=== PATIENT | female | born 1940 | race Caucasian/White ===

== ENCOUNTER 2016-04-07 12:51 | Inpatient (IN) | payer OTHER, MEDICARE ==
[2016-04-07] VITALS (11 sets, daily range): BP systolic 114–220; BP diastolic 70–95; PULSE 79–102; RESP 16–18; TEMP 97.2; O2SAT 91–98
[~2016-04-07] VITALS: Ht 162.6 cm; Wt 94.9 kg
[~2016-04-07 12:51] MED LIST: AMLO5TAB96 PO; ASPI81CH5 CHEW; LEVO100T4 PO; LORTA5 PO; LOVA1TAB47 PO; OMEG1CAP53 PO; VITA400C28 PO; VITA400C70 PO
[2016-04-07] MEDS ORDERED: SODIUM CHLORIDE 0.9% FLUSH 5 ML FLUSH IVF PRN ×2 (13:15→14:45)
--- NOTE | 2016-04-07 13:18 | PD ---
HPI Chief Complaint: Neuro Symptoms/ Deficits Time Seen by Provider: 12:53 Travel History International Travel<30 days: No Contact w/Intl Traveler<30days: No Traveled to known affect area: No History of Present Illness HPI 75-year-old female came to the emergency room with history of left-sided weakness. Her is here with her. Patient seems a little confused but knows where she is and the date today. She answers questions after asking her for couple times. Patient says she went to bed at 1:30 AM when she noticed that her left leg was weak. This morning when she woke up the leg was still weak and her left upper extremity was weak as well. Patient had a blood pressure of 220 systolic in the ER. Patient was complaining of headache on the right side and took some Advil for it. Patient takes 1 baby aspirin every night and took one last night as well. No previous history of stroke. PFSH Past Medical History Narrative Medical List of her past medical history is reviewed from the nursing note. Hx Anticoagulant Therapy: Yes (aspirin 81mg ) Depression: Yes Cardiovascular Problems: Yes (htn) High Cholesterol: Yes Hypertension: Yes Respiratory: Yes (copd) Thyroid Disease: Yes ?: Not Past Surgical History Hysterectomy: Yes Other Surgery: Yes (HIATAL HERNIA) Social History Alcohol Use: Yes (OCCASIONAL) Tobacco Use: No Substance Use: No Allergies-Medications (Allergen,Severity, Reaction): Coded Allergies: No Known Allergies (Verified , 04/07/16) Comments No known drug allergies. Reported Meds & Prescriptions Reported Meds & Active Scripts Active Reported Amlodipine (Amlodipine Besylate) 5 Mg Tab 5 Mg PO DAILY Aspirin Children's (Aspirin) 81 Mg Chew 81 Mg CHEW HS Vitamin D-3 (Cholecalciferol) 1,000 Unit Tab 1,000 Units PO DAILY Levothyroxine (Levothyroxine Sodium) 100 Mcg Tab 100 Mcg PO DAILY Lovastatin 20 Mg Tab 20 Mg PO HS Krill Oil 500 mg (Krill Oil) 1 Cap Cap 500 Mg PO DAILY Alph-E (Vitamin E) 400 Unit Cap 400 Units PO DAILY Narrative Medication List of her home medications reviewed from the nursing note. Review of Systems Except as stated in HPI: all other systems reviewed are Neg Physical Exam Narrative GENERAL: Awake, looks slightly confused, obese, Elderly, moderate distress SKIN: Warm and dry. HEAD: Atraumatic. Normocephalic. EYES: Pupils equal and round. No scleral icterus. No injection or drainage. ENT: No nasal bleeding or discharge. Mucous membranes pink and moist. NECK: Trachea midline. No JVD. CARDIOVASCULAR: Regular rate and rhythm. No murmur appreciated. RESPIRATORY: No accessory muscle use. Clear to auscultation. Breath sounds equal bilaterally. GASTROINTESTINAL: Abdomen soft, non-tender, nondistended. Hepatic and splenic margins not palpable. MUSCULOSKELETAL: No obvious deformities. No clubbing. No cyanosis. No edema. NEUROLOGICAL: GCS of 14 slightly confused. Left upper and left lower extremity weakness. Patient is able to move the extremity but strength is 3 out of 5. Sensation is diminished on the left lower extremity. Normal speech. The entire NIH stroke score was difficult to be done since patient was not answering questions and following commands appropriately PSYCHIATRIC: Appropriate mood and affect; insight and judgment normal. Data Data Last Documented VS Vital Signs Date Time Temp Pulse Resp B/P Pulse Ox O2 Delivery O2 Flow Rate FiO2 04/07/16 14:01 79 180/77 04/07/16 13:38 18 95 Nasal Cannula 3 Orders Electrocardiogram (04/07/16 13:01) Prothrombin Time / Inr (Pt) (04/07/16 13:01) Act Partial Throm Time (Ptt) (04/07/16 13:01) Complete Blood Count With Diff (04/07/16 13:01) Comprehensive Metabolic Panel (04/07/16 13:01) Creatine Kinase (Cpk) (04/07/16 13:01) Troponin I (04/07/16 13:01) Urinalysis - C+S If Indicated (04/07/16 13:01) Ct Brain W/O Iv Contrast(Rout) (04/07/16 13:01) Chest, Single Ap (04/07/16 13:01) Ecg Monitoring (04/07/16 13:01) Iv Access Insert/Monitor (04/07/16 13:01) Oximetry (04/07/16 13:01) Sodium Chloride 0.9% Flush (Ns Flush) (04/07/16 13:15) Aspirin (Aspirin) (04/07/16 14:00) Consult Neurology (04/07/16 ) Hydralazine Inj (Apresoline Inj) (04/07/16 14:00) Sodium Chlorid 0.9% 500 Ml Inj (Ns 500 M (04/07/16 14:00) (Hub Use Only)Inp Phy Cons/Ref (04/07/16 ) ^ Straight Catheter (04/07/16 14:10) Mri Brain W/O Contrast (04/07/16 ) Mra Brain W/O Contrast (Cow) (04/07/16 ) Nih Stroke Scale - Nihss .On admission and discharge (04/07/16 14:34) Neuro Checks Q2HX12,Q4H (04/07/16 14:34) Ot Request For Service (04/07/16 14:34) Consult Pt Eval & Treat (04/07/16 14:34) Swallow Eval W/ St (04/07/16 14:34) Case Management Consult (04/07/16 ) Nursing Bedside Swallow Assess .ONCE (04/07/16 14:34) Scd Bilateral/Knee High LILIANA.QSHIFT (04/07/16 14:34) Hemoglobin (Hgb) A1c (04/07/16 14:34) Lipid Profile (04/08/16 06:00) Us Carotid Arteries Comp Bilat (04/07/16 ) Echo 2d Comp W/Dopp(Routine) (04/07/16 ) Resp Oxygen Heraclio C Titrat 1-4 L (04/07/16 ) ^ Hold Medication (04/07/16 14:34) Enalaprilat Inj (Vasotec Inj) (04/07/16 14:45) Labetalol Inj (Trandate Inj) (04/07/16 14:45) Aspirin (Aspirin) (04/08/16 09:00) Bedside Glucose LILIANA.AC&HS (04/07/16 14:34) ^ Discontinue Insulin Orders (04/07/16 14:34) Insulin Aspart Supplemtl Scale (Novolog (04/07/16 16:00) Dextrose 50% In Jerilyn (Vial) Inj (D50w (Vi (04/07/16 14:45) Glucagon Inj (Glucagon Inj) (04/07/16 14:45) Consult Rehab Medicine (04/07/16 14:34) Pond Scaler / Telemetry (04/07/16 14:34) Enoxaparin Inj (Lovenox Inj) (04/07/16 15:00) Admit To Inpatient (04/07/16 ) Vital Signs (Adult) Q4H (04/07/16 14:40) Neuro Checks Q4H (04/07/16 14:40) Activity Oob With Assistance (04/07/16 14:40) Pond Scaler / Telemetry .CONTINUOUS (04/07/16 14:40) Diet Heart Healthy (04/07/16 Dinner) Sodium Chloride 0.9% Flush (Ns Flush) (04/07/16 14:45) Sodium Chloride 0.9% Flush (Ns Flush) (04/07/16 21:00) Acetaminophen (Tylenol) (04/07/16 14:45) Ondansetron Inj (Zofran Inj) (04/07/16 14:45) Bisacodyl Supp (Dulcolax Supp) (04/07/16 14:45) Magnesium Hydroxide Liq (Milk Of Magnesi (04/07/16 14:45) Basic Metabolic Panel (Bmp) (04/08/16 06:00) Complete Blood Count With Diff (04/08/16 06:00) Resp Oxygen Heraclio C Titrat 1-4 L (04/07/16 ) Pt Request For Service (04/07/16 14:40) Admit Order (Ed Use Only) (04/07/16 14:39) Ot Request For Service (04/07/16 14:40) St Request For Service (04/07/16 14:40) Scd Bilateral/Knee High LILIAAN.BID (04/07/16 14:40) Naloxone Inj (Narcan Inj) (04/07/16 14:45) Inpatient Certification (04/07/16 ) Labs Laboratory Tests Test 04/07/16 04/07/16 13:20 14:26 White Blood Count 8.1 TH/MM3 Red Blood Count 4.65 MIL/MM3 Hemoglobin 13.8 GM/DL Hematocrit 41.1 % Mean Corpuscular Volume 88.3 FL Mean Corpuscular Hemoglobin 29.6 PG Mean Corpuscular Hemoglobin 33.6 % Concent Red Cell Distribution Width 13.5 % Platelet Count 166 TH/MM3 Mean Platelet Volume 9.6 FL Neutrophils (%) (Auto) 80.5 % Lymphocytes (%) (Auto) 11.9 % Monocytes (%) (Auto) 6.6 % Eosinophils (%) (Auto) 0.5 % Basophils (%) (Auto) 0.5 % Neutrophils # (Auto) 6.5 TH/MM3 Lymphocytes # (Auto) 1.0 TH/MM3 Monocytes # (Auto) 0.5 TH/MM3 Eosinophils # (Auto) 0.0 TH/MM3 Basophils # (Auto) 0.0 TH/MM3 CBC Comment DIFF FINAL Differential Comment Prothrombin Time 10.2 SEC Prothromb Time International 0.9 RATIO Ratio Activated Partial 24.5 SEC Thromboplast Time Sodium Level 139 MEQ/L Potassium Level 4.2 MEQ/L Chloride Level 102 MEQ/L Carbon Dioxide Level 28.2 MEQ/L Anion Gap 9 MEQ/L Blood Urea Nitrogen 18 MG/DL Creatinine 0.92 MG/DL Estimat Glomerular Filtration 59 ML/MIN Rate Random Glucose 126 MG/DL Hemoglobin A1c 5.8 % Calcium Level 8.9 MG/DL Total Bilirubin 0.6 MG/DL Aspartate Amino Transf 13 U/L (AST/SGOT) Alanine Aminotransferase 20 U/L (ALT/SGPT) Alkaline Phosphatase 75 U/L Total Creatine Kinase 66 U/L Troponin I LESS THAN 0.02 NG/ML Total Protein 7.4 GM/DL Albumin 4.1 GM/DL Urine Color LIGHT-YELLOW Urine Turbidity CLEAR Urine pH 7.0 Urine Specific [place] 1.007 Urine Protein TRACE mg/dL Urine Glucose (UA) NEG mg/dL Urine Ketones NEG mg/dL Urine Occult Blood NEG Urine Nitrite NEG Urine Bilirubin NEG Urine Urobilinogen LESS THAN 2.0 MG/DL Urine Leukocyte Esterase NEG Urine RBC LESS THAN 1 /hpf Urine WBC LESS THAN 1 /hpf Urine Squamous Epithelial 1 /hpf Cells Urine Mucus FEW /lpf Microscopic Urinalysis Comment CATH-CULT NOT IND MDM Medical Decision Making Medical Screen Exam Complete: Yes Emergency Medical Condition: Yes Medical Record Reviewed: Yes Interpretation(s) Twelve-lead EKG was reviewed by me. Normal sinus rhythm, left axis deviation, old anterior CT, nonspecific ST-T wave changes, first-degree AV block. Heart rate of 87 bpm. Differential Diagnosis Intracranial bleed, CVA Narrative Course 1:29 PM patient was taken for CT scan of her head emergently. Awaiting for the scan to be done and resulted. Awaiting for the blood test result. Patient will need to be admitted regardless. 2:[address] scan result is within normal limit for any acute bleed. There is some lacunar infarcts. I spoke with the neurologist Dr. Michele who came and assessed the patient. Patient is not a TPA candidate given significantly out of the TPA window. Patient will need to be admitted. Awaiting for the hospitalist to call back. Procedures EKG Prior to Arrival: No Physician Communication Physician Communication Dr. Michele Diagnosis Primary Impression: CVA (cerebral vascular accident) Qualified Code: I63.9 - Cerebrovascular accident (CVA), unspecified mechanism Admitting Information Admitting Physician Requests: Admit Baudilio Pham MD Apr 07, 2016 13:17
[2016-04-07 13:27] LABS: AUTOMATED NEUTROPHIL # 6.5 TH/MM3 (1.8-7.7); BASOPHIL % 0.5 % (0.0-2.0); EOSINOPHIL % 0.5 % (0.0-4.0); HEMATOCRIT 41.1 % (35.0-46.0); HEMO FLAGS DIFF FINAL; LYMPH % 11.9 % (9.0-44.0); MEAN CELL VOLUME 88.3 FL (80.0-100.0); MEAN CORPUSCULAR HEMOGLOBIN 29.6 PG (27.0-34.0); MEAN CORPUSCULAR HGB CONC 33.6 % (32.0-36.0); MONO % 6.6 % (0.0-8.0); NEUT % 80.5 % (16.0-70.0); PLATELET COUNT 166 TH/MM3 (150-450); RED BLOOD COUNT 4.65 MIL/MM3 (4.00-5.30); RED CELL DISTRIBUTION WIDTH 13.5 % (11.6-17.2); WHITE BLOOD COUNT 8.1 TH/MM3 (4.0-11.0)
[2016-04-07 13:41] LABS: APTT (PATIENT) 24.5 SEC (24.3-30.1); INTERNATIONAL NORMALIZED RATIO 0.9 RATIO; PROTHROMBIN TIME - PATIENT 10.2 SEC (9.8-11.6)
[2016-04-07 13:49] LABS: ANION GAP 9 MEQ/L (5-15); AST (GOT) 13 U/L (15-37); BICARBONATE 28.2 MEQ/L (21.0-32.0); BLOOD UREA NITROGEN 18 MG/DL (7-18); CHLORIDE 102 MEQ/L (98-107); GLOMERULAR FILTRATION RATE 59 ML/MIN (>89); POTASSIUM 4.2 MEQ/L (3.5-5.1); SODIUM (NA) 139 MEQ/L (136-145)
--- NOTE | 2016-04-07 13:54 | RADRPT ---
EXAM DATE/TIME: 04/07/2016 13:24 [facility] COMPARISON: CT BRAIN W/O CONTRAST, November 21, 2015, 21:16. INDICATIONS: Left sided weakness starting last night RADIATION DOSE: 39.24 CTDIvol (mGy) MEDICAL HISTORY: Cardiovascular disease. Hypertension. Hernia, hiatal. SURGICAL HISTORY: Hysterectomy. ENCOUNTER: Initial ACUITY: 1 day PAIN SCALE: 0/10 LOCATION: Cranial TECHNIQUE: Multiple contiguous axial images were obtained of the head. Using automated exposure control and adj ustment of the mA and/or kV according to patient size, radiation dose was kept as low as reasonably a chievable to obtain optimal diagnostic quality images. FINDINGS: Stable old lacunar infarcts are again noted within the bilateral basal ganglia. Periventricular and subcortical white matter small vessel ischemic changes are also again noted. Mild cerebral atrophy is noted. Th ere is no acute hemorrhage, midline shift or extraaxial fluid collections. CONCLUSION: 1. No acute infarct, acute hemorrhage, mass effect or extraaxial fluid collections. 2. Stable scattered old lacunar infarcts within the bilateral basal ganglia and periventricular/subc ortical white matter small vessel ischemic changes bilaterally. 3. Stable cerebral atrophy. Rafa Lee MD on April 07, 2016 at 13:41 Board Certified Radiologist. This report was verified electronically.
[2016-04-07 13:56] LABS: ALKALINE PHOSPHATASE 75 U/L (45-117); ALT (GPT) 20 U/L (10-53); TOTAL BILIRUBIN ADULT 0.6 MG/DL (0.2-1.0)
[2016-04-07] MEDS ORDERED: ASPIRIN 325 MG TAB PO ONE (14:00)
[2016-04-07] MEDS ORDERED: hydrALAZINE HCL 20 MG/ML VIAL IV PUSH ONE (14:00)
[2016-04-07] MEDS ORDERED: SODIUM CHLORID 0.9% 500 ML INJ 500 ML IV ONE (14:00)
[2016-04-07 14:08] LABS: CREATINE KINASE 66 U/L (26-192)
--- NOTE | 2016-04-07 14:43 | RADRPT ---
EXAM DATE/TIME: 04/07/2016 14:20 [facility] COMPARISON: No previous studies available for comparison. INDICATIONS : Fall, short of breath, possible CVA MEDICAL HISTORY : None. SURGICAL HISTORY : None. ENCOUNTER: Initial ACUITY: 1 day PAIN SCORE: 0/10 LOCATION: Bilateral chest FINDINGS: The heart is enlarged. There is either consolidative changes or eventration of the rig ht hemidiaphragm. There is no overt congestive failure. Portions of bony skeleton visualized are un remarkable. CONCLUSION: Abnormal chest as described above. A good PA and lateral of film would be of benefit . Roscoe Vazquez MD FACR on April 07, 2016 at 14:36 Board Certified Radiologist. This report was verified electronically.
[2016-04-07] MEDS ORDERED: GLUCAGON 1 MG/ML VIAL IM/SQ PRN (14:45)
[2016-04-07] MEDS ORDERED: NALOXONE HCL 0.4 MG/ML AMP IV PRN (14:45)
[2016-04-07] MEDS ORDERED: ENALAPRILAT 1.25 MG/ML VIAL IV PRN (14:45)
[2016-04-07] MEDS ORDERED: DEXTROSE 50% IN WATER 50 ML VIAL(D50) IV PUSH PRN (14:45)
[2016-04-07] MEDS ORDERED: MAGNESIUM HYDROXIDE SUSP 30 ML CUP PO PRN (14:45)
[2016-04-07] MEDS ORDERED: LABETALOL HCL 100 MG/20 ML VIAL IV PRN (14:45)
[2016-04-07] MEDS ORDERED: ACETAMINOPHEN/HYDROcodone 325 MG/5 MG TAB PO PRN (14:45)
[2016-04-07] MEDS ORDERED: ACETAMINOPHEN 325 MG TAB PO PRN (14:45)
[2016-04-07] MEDS ORDERED: SODIUM CHLORIDE 0.9% FLUSH 5 ML FLUSH FLUSH PRN (14:45)
[2016-04-07] MEDS ORDERED: BISACODYL 10 MG SUPP PR PRN (14:45)
[2016-04-07] MEDS ORDERED: ONDANSETRON HCL 4 MG/2 ML VIAL IVP PRN (14:45)
[2016-04-07 15:00] LABS: BLOOD, URINE NEG (NEG); COMMENT (UR) CATH-CULT NOT IND; CULTURE IF INDICATED CATH CULTURE NOT IND; GLUCOSE,URINE NEG (NEG); KETONE, URINE NEG (NEG); MUCUS URINE FEW /lpf (OCC); NITRITE,URINE NEG (NEG); SQUAMOUS EPITHELIAL CELL URINE 1 /hpf (0-5); URINE COLOR LIGHT-YELLOW (YELLW/STRAW)
--- NOTE | 2016-04-07 15:04 | MB ---
cc: MAC GRIMES M.D. DATE OF CONSULTATION: 04/07/2016 DATE OF : 1940 HISTORY OF PRESENT ILLNESS The patient is a 75-year-old woman that came in with some left-sided weakness, confused, a little slow speaking. Apparently got up at 1:30 in the morning and noticed that she had left leg weakness. Still weak after awakening in the morning as well as noted in the left upper extremity. Apparently did not come in at that time, came in now. So she was out of the window for TPA and not a stroke alert. She had a systolic blood pressure of 220 when she came in and a mild headache. Normally she takes a baby aspirin every night. PAST MEDICAL HISTORY 1. Hypertension. 2. Coronary artery disease. 3. Hyperlipidemia. 4. Hypothyroidism. 5. Osteoporosis. 6. Overactive bladder. PAST SURGICAL HISTORY 1. Hysterectomy. 2. Hiatal hernia. SOCIAL HISTORY . Occasional alcohol. No tobacco or drugs. ALLERGIES None reported. MEDICATIONS Home medicines are: 1. Synthroid. 2. Norvasc. 3. Carvedilol. 4. Fosamax. 5. Baby aspirin. 6. Vitamins. PHYSICAL EXAMINATION VITAL SIGNS: Pulse is 79, respiratory rate 18. Blood pressure came in with 220/95, currently is 180/77. Satting at 95% on three liters nasal cannula. NECK: Supple. No appreciable bruits. HEART: Regular. No murmurs. LUNGS: Clear. NEUROLOGIC: She is awake and alert, a little slow to respond, but not dysarthric, not aphasic. Follows commands. Her pupils are reactive. Face is symmetrical. Tongue is midline. Facial sensation is normal bilaterally. Motor-almonte minimal subtle drift left arm and left leg, but overall 4+ strength in both upper and lower extremities on the left. Sensory is normal throughout. The right side is intact. Toes withdraws bilaterally. DTRs are one to 2+. Xopyoc-[id number] a little slower on the left than on the right but no past pointing, no dysmetria. Gait is withheld. She is at bed rest. Looking at the NIH scale she is alert, she has at best NIH of 2-3. LABORATORY DATA CBC is really unremarkable. Coag panel normal. Chemistries, glucose 126, GFR 59, AST 13, ALT 20, cardiac enzymes normal. IMAGING DATA The CT of the head performed as per protocol that showed no acute infarct, hemorrhage or mass. Old lacunes in both basal ganglia, periventricular subcortical white matter change and some atrophy. This is compared to a scan from 11/21/2015 IMPRESSION Left-sided weakness, likely consistent with an acute infarct. RECOMMENDATIONS The recommendations are to complete a stroke workup. She does not fit the criteria for TPA due to adequate window. Will go ahead and get an MRI of the brain, MRA [place], carotid ultrasound, 2-D echo. Will increase her baby aspirin to full dose aspirin for the interim. PT, OT, speech therapy, rehab consult. Fasting lipid panel. Permissible hypertension. Treat with systolic over 220 or diastolic 110 with either IV Vasotec or labetalol. Frank her out of bed tomorrow for PT evaluation. Will have a swallow eval performed with normal saline at 70 cc an hour. SCDs for DVT prophylaxis with subcu heparin and/or Lovenox can be used as well. And further recommendations to be made accordingly. MD LAISHA Gale/FANNY /2:31 PM /2:47 PM
[2016-04-07] MEDS: INSULIN ASPART SUPPLEMENTAL SCALE SQ SCH ×2 (16:00→22:00)
[2016-04-07] MEDS ORDERED: VITA10003 PO (16:09)
[2016-04-07] MEDS ORDERED: ALPH400C2 PO (16:09)
[2016-04-07] MEDS ORDERED: LEVO100T5 PO (16:09)
[2016-04-07] MEDS ORDERED: ASPI81CH7 CHEW (16:09)
[2016-04-07] MEDS ORDERED: AMLO5TAB2 PO (16:09)
[2016-04-07] MEDS ORDERED: LOVA20TA PO (16:09)
[2016-04-07] MEDS ORDERED: KRIL1CAP11 PO (16:09)
[2016-04-07] MEDS: ENOXAPARIN SODIUM 40 MG/0.4 ML SYRINGE SQ SCH (16:18)
--- NOTE | 2016-04-07 17:42 | RADRPT ---
EXAM DATE/TIME: 04/07/2016 16:17 [facility] COMPARISON: No previous studies available for comparison. INDICATIONS : Cerebrovascular accident. MEDICAL HISTORY : Hypertension. Hypercholesterolemia. Thyroid disease. COPD. SURGICAL HISTORY : Hysterectomy. ENCOUNTER: Initial ACUITY: 1 day PAIN SCORE: Nonresponsive. LOCATION: Bilateral neck PEAK SYSTOLIC VELOCITIES (cm/sec): ICA/CCA RATIO: Right: 2.1 Left: 2.5 ICA: Right: 255 Left: 443 CCA: Right: 124 Left: 180 ECA: Right: 398 Left: 381 VERTEBRAL: Right: 0 absent Left: 106 antegrade Elevated flow velocities and ICA/CCA ratios have been found to correlate with increased degrees of vessel stenosis, calculated as percentage of diameter relative to a normal segment of distal ICA/CCA FINDINGS: RIGHT CAROTID: There is elevated ratio and velocities on the right consistent with hemodynamically significant steno sis. LEFT CAROTID: Elevated velocities and ratios on the left again consistent with hemodynamically significant stenosis . VERTEBRAL ARTERIES: Flow is absent in the right vertebral artery. MISCELLANEOUS: None. CONCLUSION: Findings would suggest high-grade carotid stenosis worse on the left than the right . MR angiogram is suggested.. Roscoe Vazquez MD FACR on April 07, 2016 at 17:38 Board Certified Radiologist. This report was verified electronically.
[2016-04-07] MEDS ORDERED: GADODIAMIDE PF 287 MG/ML 20 ML VIAL (for RAD MRI) IV ONE ×2 (19:41)
--- NOTE | 2016-04-07 20:13 | RADRPT ---
EXAM DATE/TIME: 04/07/2016 18:11 [facility] COMPARISON: No previous studies available for comparison. INDICATIONS : Left sided weakness. MEDICAL HISTORY : Hypertension. SURGICAL HISTORY : Inguinal hernia repair. Hysterectomy. Right knee/ankle. ENCOUNTER: Initial ACUITY: 1 day PAIN SCORE: 0/10 LOCATION: head TECHNIQUE: Multiplanar, multisequence MRI of the brain was performed without contrast. FINDINGS: There are numerous scattered small subcentimeter infarcts in the brain, almost exclusively on the rig ht side and mostly at the periphery of the brain involving the frontal lobe, parietal, temporal lobe and occipital lobes. This also a tiny infarct in the left occipital and left periventricular white ma tter. Findings suggest embolic origin. There is underlying moderate chronic white matter ischemic mark nge there is cortical volume loss. Susceptibility weighted images suggest multiple areas of small pet echial hemorrhage. CONCLUSION: 1. Numerous scattered small subcentimeter infarcts in the brain, predominantly over the right hemisph ere as above with at least 2 tiny subcentimeter infarcts on the left. No mass effect or shift. No hyd rocephalus. Distribution of infarcts most characteristic of an embolic phenomenon. Alek Gómez MD on April 07, 2016 at 20:08 Board Certified Radiologist. This report was verified electronically.
--- NOTE | 2016-04-07 20:15 | RADRPT ---
EXAM DATE/TIME: 04/07/2016 18:11 [facility] COMPARISON: No previous studies available for comparison. INDICATIONS : CVA. Left sided weakness. MEDICAL HISTORY : Hypertension. SURGICAL HISTORY : Inguinal hernia repair. Hysterectomy. Right knee/ankle. ENCOUNTER: Initial ACUITY: 1 day PAIN SCORE: 0/10 LOCATION: head Please note a normal MRA of the brain does not entirely exclude the possibility of a small aneurysm, nor the possibility of distal intracranial vessel disease. TECHNIQUE: 3D time of flight MRA was performed. Source images, multiplanar STS MIP, and 3D volume MIP reconstru ctions were reviewed. FINDINGS: There is excellent visualization of the major intracranial arteries out to the second-order branch ve ssels. There is no evidence for aneurysm, vessel truncation or stenosis, and no evidence for vascula r malformation. CONCLUSION: 1. Exam degraded by motion but no significant abnormality identified. Alek Gómez MD on April 07, 2016 at 20:12 Board Certified Radiologist. This report was verified electronically.
--- NOTE | 2016-04-07 20:40 | RADRPT ---
EXAM DATE/TIME: 04/07/2016 18:11 [facility] COMPARISON: No previous studies available for comparison. INDICATIONS : Stroke. CONTRAST: 20 cc Omniscan (gadodiamide) IV MEDICAL HISTORY : Hypertension. SURGICAL HISTORY : Inguinal hernia repair. Hysterectomy. Right knee/ankle. ENCOUNTER: Initial ACUITY: 1 day PAIN SCORE: 0/10 LOCATION: neck Percent stenosis is calculated using the diameter of the stenotic region over the diameter of the nor mal distal internal carotid artery. TECHNIQUE: Bolus infused MRA of the extracranial circulation was performed using a neurovascular coil. Post pro cessing was performed including rotationg subvolume maximum intensity projections of each carotid art cel[place], rotating full volume maximum intensity projections of both carotid arteries, sagittal and davis l sliding thin slab reformations of each carotid artery, and left oblique sliding thin slab reformati on through the aortic arch to include the origin of the arch branch vessels. FINDINGS: The exam is degraded by motion artifact. There is a fairly large filling defect and questionable diss ection in the brachiocephalic artery. This is better evaluated with CTA of the chest. There is also a t least a moderate stenosis of the left common carotid artery at the origin and mild stenosis of the proximal left subclavian artery. Both common carotid arteries are patent in the neck. There is mild stenosis of both proximal internal carotid arteries. There is a moderate stenosis of the proximal right external carotid artery and sev ere stenosis proximal left external carotid artery. The internal carotid arteries are otherwise paten t within the neck. CONCLUSION: 1. Fairly large filling defect and questionable dissection in the brachiocephalic artery. This would be better evaluated with CTA chest. 2. Focal at least moderate stenosis of the proximal left common carotid artery. Mild stenosis at the proximal internal carotid arteries bilaterally and proximal left subclavian artery. Alek Gómez MD on April 07, 2016 at 20:33 Board Certified Radiologist. This report was verified electronically.
[2016-04-07] MEDS ORDERED: SODIUM CHLORIDE 0.9% FLUSH 5 ML FLUSH IVF SCH (21:00)
[2016-04-07 21:18] LABS: HEMOGLOBIN A1a 0.9 %; HEMOGLOBIN LA1C 2.3 %
[2016-04-07 21:19] LABS: HEMOGLOBIN Ao 84.2 %; HEMOGLOBIN P3 5.6 %
[2016-04-07] MEDS: SODIUM CHLORIDE 0.9% FLUSH 5 ML FLUSH FLUSH SCH (21:36)
--- NOTE | 2016-04-07 23:10 | HHI.HP ---
[facility] Shefali Mcdonald M.D. Admission Diagnosis CVA Diagnoses: Chief Complaint: Left sided weakness. Travel History International Travel<30 Days: No Contact w/Intl Traveler <30 Da: No Traveled to Known Affected Are: No History of Present Illness Ms. Davidson is a 75-year-old female with a history of hypertension, COPD, hypothyroidism who presents to the emergency department on 04/07/2016 due to left- sided weakness. History mostly obtained from patient's and daughter at bedside. Patient fell at night on 04/06/2016 and it was difficult for her to pick her up from the floor. Patient's daughter came and helped her mother to get back to the bed. In the morning around 6 AM patient's family members noticed coordination difficulty with left arm as well as left leg. She also had left leg weakness as well. No chest pain, shortness of breath, fever or chills. No changes in bowel or bladder habits. Review of Systems ROS Limitations: Other (negative except as noted in the history of present illness) Past Family Social History Past Medical History Hypertension, hyperlipidemia, COPD, hypothyroidism. Past Surgical History Bladder surgery, hysterectomy, ankle surgery, knee surgery. Reported Medications Zoe 5-325 mg (Hydrocodone-Acetaminophen 5-325 mg) 1 Tab 1 Tab PO Q6H PRN Lovaza (Fish Oil) 1 Gm Cap 4 Gm PO DAILY Vitamin E 400 Units Cap 400 Units PO DAILY [facility] Aspirin (Aspirin) 81 Mg Chew 81 Mg CHEW DAILY Vitamin D 400 Unit Tab 1,000 Unit PO DAILY Mevacor (Lovastatin) 20 Mg Tab 20 Mg PO DAILY Norvasc (Amlodipine Besylate) 5 Mg Tab 5 Mg PO DAILY Levothyroxine 100 mcg (Levothyroxine Sodium) 100 Mcg Tab 100 Mcg PO DAILY Allergies: Coded Allergies: No Known Allergies (Verified , 04/07/16) Family History Family history significant for heart disease. No history of Alzheimer's or Parkinson's in the family. Social History Denies using alcohol or tobacco. Physical Exam Vital Signs Vital Signs Date Time Temp Pulse Resp B/P Pulse Ox O2 Delivery O2 Flow Rate FiO2 04/07/16 21:13 97.2 82 18 114/72 98 04/07/16 17:43 95 16 160/70 95 Nasal Cannula 3 04/07/16 17:37 88 17 164/78 97 Nasal Cannula 3 04/07/16 17:00 82 17 95 Nasal Cannula 3 04/07/16 17:00 102 17 220/81 95 Nasal Cannula 3 04/07/16 16:00 96 18 207/84 96 Nasal Cannula 3 04/07/16 15:14 95 Nasal Cannula 2.00 04/07/16 15:00 80 18 174/71 96 Nasal Cannula 3 04/07/16 14:01 79 180/77 04/07/16 13:38 86 18 196/84 95 Nasal Cannula 3 04/07/16 13:22 91 Room Air 04/07/16 12:58 91 17 220/95 91 Physical Exam GENERAL: This is a well-nourished, well-developed patient, in no apparent distress. SKIN: No rashes, ecchymoses or lesions. Warm and dry. HEAD: Atraumatic. Normocephalic. No temporal or scalp tenderness. EYES: Pupils equal round and reactive. No injection or drainage. ENT: Nose without bleeding, purulent drainage or septal hematoma. Airway patent. NECK: Trachea midline. No lymphadenopathy. Supple, nontender, no meningeal signs. CARDIOVASCULAR: Regular rate and rhythm without murmurs, gallops, or rubs. No JVD. RESPIRATORY: Clear to auscultation. Breath sounds equal bilaterally. No wheezes , rales, or rhonchi. GASTROINTESTINAL: Abdomen soft, non-tender, nondistended. No guarding. MUSCULOSKELETAL: Extremities without clubbing, cyanosis, or edema. NEUROLOGICAL: Awake and alert. Cranial nerves II through XII intact. No focal neurological deficits. Left side is slightly weaker than right side. Normal speech. Laboratory Laboratory Tests Test 04/07/16 04/07/16 13:20 14:26 White Blood Count 8.1 Red Blood Count 4.65 Hemoglobin 13.8 Hematocrit 41.1 Mean Corpuscular Volume 88.3 Mean Corpuscular Hemoglobin 29.6 Mean Corpuscular Hemoglobin 33.6 Concent Red Cell Distribution Width 13.5 Platelet Count 166 Mean Platelet Volume 9.6 Neutrophils (%) (Auto) 80.5 Lymphocytes (%) (Auto) 11.9 Monocytes (%) (Auto) 6.6 Eosinophils (%) (Auto) 0.5 Basophils (%) (Auto) 0.5 Neutrophils # (Auto) 6.5 Lymphocytes # (Auto) 1.0 Monocytes # (Auto) 0.5 Eosinophils # (Auto) 0.0 Basophils # (Auto) 0.0 CBC Comment DIFF FINAL Differential Comment Prothrombin Time 10.2 Prothromb Time International 0.9 Ratio Activated Partial 24.5 Thromboplast Time Sodium Level 139 Potassium Level 4.2 Chloride Level 102 Carbon Dioxide Level 28.2 Anion Gap 9 Blood Urea Nitrogen 18 Creatinine 0.92 Estimat Glomerular Filtration 59 Rate Random Glucose 126 Hemoglobin A1c 5.8 Calcium Level 8.9 Total Bilirubin 0.6 Aspartate Amino Transf 13 (AST/SGOT) Alanine Aminotransferase 20 (ALT/SGPT) Alkaline Phosphatase 75 Total Creatine Kinase 66 Troponin I LESS THAN 0.02 Total Protein 7.4 Albumin 4.1 Urine Color LIGHT-YELLOW Urine Turbidity CLEAR Urine pH 7.0 Urine Specific [employer] 1.007 Urine Protein TRACE Urine Glucose (UA) NEG Urine Ketones NEG Urine Occult Blood NEG Urine Nitrite NEG Urine Bilirubin NEG Urine Urobilinogen LESS THAN 2.0 Urine Leukocyte Esterase NEG Urine RBC LESS THAN 1 Urine WBC LESS THAN 1 Urine Squamous Epithelial 1 Cells Urine Mucus FEW Microscopic Urinalysis Comment CATH-CULT NOT IND Result Diagram: 04/07/16 1320 04/07/16 1320 Imaging Last Impressions Head CT 04/07/16 1301 Signed Impressions: Service Date/Time: Thursday, April 07, 2016 13:24 - CONCLUSION: 1. No acute infarct, acute hemorrhage, mass effect or extraaxial fluid collections. 2. Stable scattered old lacunar infarcts within the bilateral basal ganglia and periventricular/subcortical white matter small vessel ischemic changes bilaterally. 3. Stable cerebral atrophy. Rafa Lee MD Chest X-Ray 04/07/16 1301 Signed Impressions: Service Date/Time: Thursday, April 07, 2016 14:20 - CONCLUSION: Abnormal chest as described above. A good PA and lateral of film would be of benefit. Roscoe Vazquez MD FACR Neck Magnetic Resonance Angiography 04/07/16 0000 Signed Impressions: Service Date/Time: Thursday, April 07, 2016 18:11 - CONCLUSION: 1. Fairly large filling defect and questionable dissection in the brachiocephalic artery. This would be better evaluated with CTA chest. 2. Focal at least moderate stenosis of the proximal left common carotid artery. Mild stenosis at the proximal internal carotid arteries bilaterally and proximal left subclavian artery. Alek Gómez MD Head Magnetic Resonance Angiography 04/07/16 Signed Impressions: Service Date/Time: Thursday, April 07, 2016 18:11 - CONCLUSION: 1. Exam degraded by motion but no significant abnormality identified. Alek Gómez MD Carotid Artery Ultrasound 04/07/16 Signed Impressions: Service Date/Time: Thursday, April 07, 2016 16:17 - CONCLUSION: Findings would suggest high-grade carotid stenosis worse on the left than the right. MR angiogram is suggested.. Roscoe Vazquez MD FACR Brain MRI 04/07/16 Signed Impressions: Service Date/Time: Thursday, April 07, 2016 18:11 - CONCLUSION: 1. Numerous scattered small subcentimeter infarcts in the brain, predominantly over the right hemisphere as above with at least 2 tiny subcentimeter infarcts on the left. No mass effect or shift. No hydrocephalus. Distribution of infarcts most characteristic of an embolic phenomenon. Alek Gómez MD Assessment and Plan Problem List: (1) CVA (cerebral vascular accident) ICD Code: I63.9 Status: Acute (2) Hypertension ICD Code: I10 Status: Acute (3) Hypothyroidism ICD Code: E03.9 Status: Acute Assessment and Plan Ms. Davidson is a pleasant 75-year-old female with a history of hypertension, hypothyroidism who presents to the emergency department on 04/07/2016 due to left- sided weakness noticed in the morning around 6 AM. - acute stroke - Neurology evaluated patient. MRI studies shows possible embolic stroke - Continue telemetry to detect possible atrial fibrillation. - Aspirin 325 mg daily. Plavix may be more effective since patient was taking aspirin 81 mg daily. - Hypertension - Continue amlodipine 5 mg daily - Hyperlipidemia - continue pravastatin 20 mg by mouth daily - Hypothyroidism - continue levothyroxine 100 g by mouth daily Full code. Lovenox 40 mg daily. Physician Certification 2 Midnight Certification Type: Admission for Inpatient Services Order for Inpatient Services The services are ordered in accordance with Medicare regulations or non- Medicare payer requirements, as applicable. In the case of services not specified as inpatient-only, they are appropriately provided as inpatient services in accordance with the 2-midnight benchmark. Estimated LOS (days): 2 days is the estimated time the patient will need to remain in the hospital, assuming treatment plan goals are met and no additional complications. Post-Hospital Plan: Home Problem Qualifiers (1) CVA (cerebral vascular accident): Qualified Code: I63.9 - Cerebrovascular accident (CVA), unspecified mechanism Eileen Mittal DO Apr 07, 2016 11:10 pm
[2016-04-08] VITALS (8 sets, daily range): BP systolic 118–178; BP diastolic 67–86; PULSE 72–92; RESP 16–22; TEMP 97.1–99.1; O2SAT 86–98
[2016-04-08] MEDS: LEVOTHYROXINE SODIUM 100 MCG TAB PO SCH (05:31)
[2016-04-08 07:33] LABS: AUTOMATED NEUTROPHIL # 5.1 TH/MM3 (1.8-7.7); BASOPHIL % 0.3 % (0.0-2.0); EOSINOPHIL # 0.1 TH/MM3 (0-0.4); EOSINOPHIL % 1.4 % (0.0-4.0); HEMATOCRIT 40.4 % (35.0-46.0); HEMO FLAGS DIFF FINAL; LYMPH % 18.7 % (9.0-44.0); LYMPHOCYTE # 1.4 TH/MM3 (1.0-4.8); MEAN CELL VOLUME 88.1 FL (80.0-100.0); MEAN CORPUSCULAR HEMOGLOBIN 29.6 PG (27.0-34.0); MEAN CORPUSCULAR HGB CONC 33.7 % (32.0-36.0); MONO % 12.4 % (0.0-8.0); NEUT % 67.2 % (16.0-70.0); PLATELET COUNT 157 TH/MM3 (150-450); RED BLOOD COUNT 4.59 MIL/MM3 (4.00-5.30); RED CELL DISTRIBUTION WIDTH 13.6 % (11.6-17.2); WHITE BLOOD COUNT 7.6 TH/MM3 (4.0-11.0)
[2016-04-08 07:35] LABS: BICARBONATE 26.4 MEQ/L (21.0-32.0); POTASSIUM 3.7 MEQ/L (3.5-5.1)
[2016-04-08 07:37] LABS: HDL CHOLESTEROL 71.7 MG/DL (40.0-60.0)
[2016-04-08] MEDS ORDERED: PNEUMOCOCCAL POLYVALENT INJ 25 MCG/0.5 ML SYR IM ONE (09:00)
[2016-04-08] MEDS ORDERED: ASPIRIN 81 MG CHEW TAB CHEW SCH (09:00)
[2016-04-08] MEDS: PRAVASTATIN SOD 20 MG TAB PO SCH (09:30)
[2016-04-08] MEDS: amLODIPine BESYLATE 5 MG TAB PO SCH (09:30)
[2016-04-08] MEDS: CHOLECALCIFEROL (VIT D3) 1000 UNIT TAB PO SCH (09:30)
[2016-04-08] MEDS: ASPIRIN 325 MG TAB PO SCH (09:31)
[2016-04-08] MEDS: INSULIN ASPART SUPPLEMENTAL SCALE SQ SCH ×3 (11:00→21:00)
--- NOTE | 2016-04-08 12:34 | HHI.PR ---
Subjective Remarks Follow-up for acute stroke. Patient is currently doing well, sitting in her chair. Denies any acute concerns. Denies any chest pain, shortness of breath, fever or chills. Feels that her left-sided weakness is improving. Objective Vitals Vital Signs Date Time Temp Pulse Resp B/P Pulse Ox O2 Delivery O2 Flow Rate FiO2 04/08/16 12:00 98.6 76 22 150/67 93 04/08/16 09:14 86 21 04/08/16 08:00 99.1 82 16 162/70 91 04/08/16 04:00 97.2 90 20 118/84 97 04/08/16 00:00 97.1 92 20 119/86 98 04/07/16 21:13 97.2 82 18 114/72 98 04/07/16 17:43 95 16 160/70 95 Nasal Cannula 3 04/07/16 17:37 88 17 164/78 97 Nasal Cannula 3 04/07/16 17:00 82 17 95 Nasal Cannula 3 04/07/16 17:00 102 17 220/81 95 Nasal Cannula 3 04/07/16 16:00 96 18 207/84 96 Nasal Cannula 3 04/07/16 15:14 95 Nasal Cannula 2.00 04/07/16 15:00 80 18 174/71 96 Nasal Cannula 3 04/07/16 14:01 79 180/77 04/07/16 13:38 86 18 196/84 95 Nasal Cannula 3 04/07/16 13:22 91 Room Air 04/07/16 12:58 91 17 220/95 91 Result Diagram: 04/08/16 0531 04/08/16 0531 Imaging Last Impressions Head CT 04/07/16 1301 Signed Impressions: Service Date/Time: Thursday, April 07, 2016 13:24 - CONCLUSION: 1. No acute infarct, acute hemorrhage, mass effect or extraaxial fluid collections. 2. Stable scattered old lacunar infarcts within the bilateral basal ganglia and periventricular/subcortical white matter small vessel ischemic changes bilaterally. 3. Stable cerebral atrophy. Rafa Lee MD Chest X-Ray 04/07/16 1301 Signed Impressions: Service Date/Time: Thursday, April 07, 2016 14:20 - CONCLUSION: Abnormal chest as described above. A good PA and lateral of film would be of benefit. Roscoe Vazquez MD FACR Neck Magnetic Resonance Angiography 04/07/16 Signed Impressions: Service Date/Time: Thursday, April 07, 2016 18:11 - CONCLUSION: 1. Fairly large filling defect and questionable dissection in the brachiocephalic artery. This would be better evaluated with CTA chest. 2. Focal at least moderate stenosis of the proximal left common carotid artery. Mild stenosis at the proximal internal carotid arteries bilaterally and proximal left subclavian artery. Alek Gómez MD Head Magnetic Resonance Angiography 04/07/16 Signed Impressions: Service Date/Time: Thursday, April 07, 2016 18:11 - CONCLUSION: 1. Exam degraded by motion but no significant abnormality identified. Alek Gómez MD Carotid Artery Ultrasound 04/07/16 Signed Impressions: Service Date/Time: Thursday, April 07, 2016 16:17 - CONCLUSION: Findings would suggest high-grade carotid stenosis worse on the left than the right. MR angiogram is suggested.. Roscoe Vazquez MD FACR Brain MRI 04/07/16 Signed Impressions: Service Date/Time: Thursday, April 07, 2016 18:11 - CONCLUSION: 1. Numerous scattered small subcentimeter infarcts in the brain, predominantly over the right hemisphere as above with at least 2 tiny subcentimeter infarcts on the left. No mass effect or shift. No hydrocephalus. Distribution of infarcts most characteristic of an embolic phenomenon. Alek Gómez MD Objective Remarks GENERAL: Alert, oriented 3. NAD. SKIN: Warm and dry. HEAD: Normocephalic. EYES: No scleral icterus. No injection or drainage. NECK: Supple, trachea midline. No JVD or lymphadenopathy. CARDIOVASCULAR: Regular rate and rhythm without murmurs, gallops, or rubs. RESPIRATORY: Breath sounds equal bilaterally. No accessory muscle use. GASTROINTESTINAL: Abdomen soft, non-tender, nondistended. MUSCULOSKELETAL: No cyanosis, or edema. Mild weakness on the left side compared to right side. BACK: Nontender without obvious deformity. No CVA tenderness. Procedures None A/P Problem List: (1) CVA (cerebral vascular accident) ICD Code: I63.9 Status: Acute (2) Hypertension ICD Code: I10 Status: Acute (3) Hypothyroidism ICD Code: E03.9 Status: Acute Assessment and Plan Ms. Davidson is a pleasant 75-year-old female with a history of hypertension, hypothyroidism who presents to the emergency department on 04/07/2016 due to left- sided weakness noticed in the morning around 6 AM. - acute stroke - Neurology evaluated patient. MRI studies shows possible embolic stroke - Continue telemetry to detect possible atrial fibrillation. - Aspirin 325 mg daily. Plavix may be more effective since patient was taking aspirin 81 mg daily. - Will wait for Neurology input with regards to switching to Plavix. - Discussed with [facility] fulfillment representative regarding possible rehab at [facility]. Patient can potentially go to [facility] on 04/09/2016 with Holter monitor. - Hypertension - Increase amlodipine from 5 mg to 10 mg by mouth daily. - Hyperlipidemia - continue pravastatin 20 mg by mouth daily - Hypothyroidism - continue levothyroxine 100 g by mouth daily Full code. Lovenox 40 mg daily. Problem Qualifiers (1) CVA (cerebral vascular accident): Qualified Code: I63.9 - Cerebrovascular accident (CVA), unspecified mechanism Eileen Mittal DO Apr 08, 2016 12:34 pm
[2016-04-08] MEDS: PANTOPRAZOLE SOD 40 MG DELAYED RELEASE TAB PO SCH (13:12)
[2016-04-08] MEDS ORDERED: IOHEXOL 350 MG/ML 10 ML VIAL (for RAD DIAG) IV ONE (15:57)
--- NOTE | 2016-04-08 16:23 | HHI.PR ---
Subjective Remarks feels better today Objective Vital Signs Date Time Temp Pulse Resp B/P Pulse Ox O2 Delivery O2 Flow Rate FiO2 04/08/16 13:28 95 Nasal Cannula 2.00 04/08/16 12:00 98.6 76 22 150/67 93 04/08/16 09:14 86 21 04/08/16 08:00 99.1 82 16 162/70 91 04/08/16 04:00 97.2 90 20 118/84 97 04/08/16 00:00 97.1 92 20 119/86 98 04/07/16 21:13 97.2 82 18 114/72 98 04/07/16 17:43 95 16 160/70 95 Nasal Cannula 3 04/07/16 17:37 88 17 164/78 97 Nasal Cannula 3 04/07/16 17:00 82 17 95 Nasal Cannula 3 04/07/16 17:00 102 17 220/81 95 Nasal Cannula 3 I/O 04/07/16 04/07/16 04/07/16 04/08/16 04/08/16 04/08/16 07:00 15:00 23:00 07:00 15:00 23:00 Intake Total 480 ml Balance 480 ml Intake Oral 480 ml # Voids 1 5 2 # Bowel Movements 1 Result Diagram: 04/08/16 0531 04/08/16 0531 Imaging mri brain # small inf on right and 2 on left -embolic mra cow neg mra ca ?dissection of brachiocephalic art. ct thorax done result pending. Objective Remarks awake alert fluent perrla motor intact heart gr 3/6 murmur Assessment and Plan Assessment and Plan embolic strokes ? dissection of brachiocephalic art -ct thorax results pendingif dissection call vasculr consult and put on heparin -if neg monitor fort a fib stay on asa for now -will need loop vs prolonged holter to see if a fib and be placed on AC echo report pending. rehab pending Katie Michele MD Apr 08, 2016 16:23
[2016-04-08] MEDS: ENOXAPARIN SODIUM 40 MG/0.4 ML SYRINGE SQ SCH (16:53)
[2016-04-08] MEDS: SODIUM CHLORIDE 0.9% FLUSH 5 ML FLUSH FLUSH SCH ×2 (16:58→21:52)
--- NOTE | 2016-04-08 17:05 | RADRPT ---
EXAM DATE/TIME: 04/08/2016 15:31 [facility] COMPARISON: MRA CAROTIDS W CONTRAST, April 07, 2016, 18:11. 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 IV CONTRAST: 100 cc Omnipaque 350 (iohexol) IV RADIATION DOSE: 23.48 CTDIvol (mGy) MEDICAL HISTORY : Hypertension. Chronic obstructive pulmonary disease. Cerebrovascular disea se. SURGICAL HISTORY : Hysterectomy. ENCOUNTER: Subsequent ACUITY: 1 day PAIN SCALE: 0/10 LOCATION: Cranial TECHNIQUE: Volumetric scanning of the chest was performed using a pulmonary embolism protocol MIP images were reconstructed. Using automated exposure control and adjustment of the mA and/or kV acco rding to patient size, radiation dose was kept as low as reasonably achievable to obtain optimal diag nostic quality images. FINDINGS: Dense atherosclerotic calcifications of the aortic arch extending into the arch vessels themselves. This does result in some degree of stenosis in all three arch vessels. In the brachioc ephalic, the vessel almost has a fenestrated luminal appearance with possibly an associated significa nt stenosis. The origin of the left common carotid has an oblique narrowing of approximately 50% but I do not believe that this is clinically significant. The left subclavian shows irregularity but I believe is patent. There was a concern for possible dissection of the right brachiocephalic. That is not present on this CTA. I think the appearance on the previous MRA is artifactual, partly due to a Yasmin-effect and the fact that there is an early bifurcation of the brachiocephalic into the common carotid and right subc lavian arteries. Additional findings include dense atherosclerotic calcification of the coronary arteries. There is s ome calcification of the mitral valve annulus. Large hiatal hernia is identified with a good portion of the stomach actually sitting in the right chest. Concomitant atelectatic changes in the right radha ng base with volume loss in the right hemithorax. There is density surrounding the herniated stomach near its base. I am not sure if this is calcification or possible vascular in nature representing r egional varicosities. A benign-appearing parenchymal cyst is seen laterally in the right lung base. CONCLUSION: 1. There does not appear to be a dissection of the brachiocephalic artery. I believe the appearance on the previous MRA is artifactual partly due to a Yasmin-effect and the fact that the brachiocephalic artery bifurcates early into the common carotid and right subclavian arteries. 2. Dense atherosclerotic calcification of the arch with extension into the arch vessels. This result s in a mild, eccentric 50% stenosis of the ostium of the left common carotid which I do not believe i s significant. The left subclavian is patent and there may be a significant stenosis in the brachioc ephalic. 3. Large hiatal hernia. Density at the base of the hernia may represent either dystrophic type calci fications or varicosities associated with venous compression as the stomach herniates through the hia tus. A noncontrasted CT scan of the upper abdomen could be performed for further evaluation if clini za warranted. 4. Dense atherosclerotic calcification of the coronary arteries. Calcification of the mitral valve a nnulus. Ren Blackman MD on April 08, 2016 at 16:38 Board Certified Radiologist. This report was verified electronically.
--- NOTE | 2016-04-08 19:03 | EC ---
Study Study Date:04/08/2016 STUDY CONCLUSIONS SUMMARY - Left ventricle: The cavity size was normal. Wall thickness was increased in a pattern of mild LVH. There was concentric hypertrophy. Systolic function was normal. The estimated ejection fraction was in the range of 60% to 65%. Wall motion was normal; there were no regional wall motion abnormalities. Doppler parameters are consistent with abnormal left ventricular relaxation (grade 1 diastolic dysfunction). - Mitral valve: Moderately calcified annulus. Mild regurgitation. - Left atrium: The atrium was mildly dilated. - Right ventricle: The cavity size was mildly dilated. - Tricuspid valve: Mild regurgitation. - Pulmonary arteries: PA peak pressure: 36mm Hg (S). If LV function is below 40, please consider prescribing an ACEI or ARB or document rationale for non-use. PROCEDURE DATA STUDY STATUS: Elective. Procedure: Transthoracic echocardiography. Image quality was good. Scanning was performed from the parasternal, apical, and subcostal acoustic windows. Study completion: The patient tolerated the procedure well. Transthoracic echocardiography. M-mode, complete 2D, complete spectral Doppler, and color Doppler. Height: Height: 64in. Weight: Weight: 201.6lb. Body mass index: BMI: 34.7kg/m^2. Body surface area: BSA: 1.96m^2. Patient status: Inpatient. CARDIAC ANATOMY LEFT VENTRICLE: The cavity size was normal. Wall thickness was increased in a pattern of mild LVH. There was concentric hypertrophy. Systolic function was normal. The estimated ejection fraction was in the range of 60% to 65%. Wall motion was normal; there were no regional wall motion abnormalities. Doppler parameters are consistent with abnormal left ventricular relaxation (grade 1 diastolic dysfunction). AORTIC VALVE: The valve appears to be grossly normal. Doppler: There was no stenosis. No significant regurgitation. Valve area: 2.17cm^2(VTI). Indexed valve area: 1.11cm^2/m^2 (VTI). Valve area: 1.94cm^2 (Vmax). Indexed valve area: 0.99cm^2/m^2 (Vmax). Mean gradient: 5mm Hg (S). MITRAL VALVE: Moderately calcified annulus. Doppler: There was no evidence for stenosis. Mild regurgitation. Peak gradient: 6mm Hg (D). LEFT ATRIUM: The atrium was mildly dilated. RIGHT VENTRICLE: The cavity size was mildly dilated. Systolic function was normal. PULMONIC VALVE: Not well visualized. TRICUSPID VALVE: The valve appears to be grossly normal. Doppler: There was no evidence for stenosis. Mild regurgitation. PERICARDIUM: There was no pericardial effusion. Patient weight: 201.6lb _Ejection fraction:_ 65-75% _Fractional shortening:_ 32% up to 5Kg 5-11.5Kg 11.6-22.9Kg 23-45Kg 45-57Kg Aortic Root 7-13 <17 13-22 17-27 17-27 LA diam 6-13 <23 24-38 33-47 37-40 RVID 10-17 7-15 7-15 7-18 8-17 LVIDd 12-22 <32 24-38 33-47 37-40 LVPW 2-4 3-6 5-7 6-8 7-8 IVS 2-4 3-6 5-7 6-8 7-8 BASIC MEASUREMENTS ADULT NORMAL Left ventricle LV internal dimension, ED, chordal *41.2 mm 43-52 level, PLAX LV internal dimension, ES, chordal 26.7 mm 23-38 level, PLAX Fractional shortening, chordal level, 35 % >29 PLAX LV posterior wall thickness, ED 13.1 mm IVS/LVPW ratio, ED 1 <1.3 Ventricular septum Septal thickness, ED 13.1 mm Aortic valve Leaflet separation 20 mm 15-26 Aorta Root diameter, ED 33 mm Left atrium Anterior-posterior dimension 35 mm Anterior-posterior dimension index 1.79 cm/m^2 <2.2 BASIC MEASUREMENTS ADULT NORMAL Aortic valve Leaflet separation 20 mm 15-26 DOPPLER MEASUREMENTS ADULT NORMAL Main pulmonary artery Pressure, S *36 mm Hg =30 Aortic valve Peak velocity, S 136 cm/s Mean velocity, S 107 cm/s VTI, S 28.5 cm Mean gradient, S 5 mm Hg Valve area, VTI 2.17 cm^2 Valve area index, VTI 1.11 cm^2/m^2 Valve area, Vmax 1.94 cm^2 Valve area index, Vmax 0.99 cm^2/m^2 Mitral valve Peak E-wave velocity 118 cm/s Peak A-wave velocity 156 cm/s Deceleration time *366 ms 150-230 Peak gradient, D 6 mm Hg Peak E/A ratio 0.8 Tricuspid valve Regurgitant peak velocity 304 cm/s Peak RV-RA gradient, S 37 mm Hg Maximal regurgitant velocity 304 cm/s Systemic veins Estimated CVP 5 mm Hg Right ventricle RV pressure, S *42 mm Hg <30 Pulmonic valve Peak velocity, S 125 cm/s LEGEND: Mean values are shown as u=mean value. Asterisk (*) bautista values outside specified normal range. Prepared and signed by Bakari Odom [id number]
[2016-04-09] VITALS (11 sets, daily range): BP systolic 140–169; BP diastolic 65–85; PULSE 69–90; RESP 16–20; TEMP 96–98.3; O2SAT 92–97
[2016-04-09] MEDS: LEVOTHYROXINE SODIUM 100 MCG TAB PO SCH (05:33)
[2016-04-09] MEDS: INSULIN ASPART SUPPLEMENTAL SCALE SQ SCH ×4 (06:27→21:00)
[2016-04-09] MEDS: PANTOPRAZOLE SOD 40 MG DELAYED RELEASE TAB PO SCH (10:47)
[2016-04-09] MEDS: CHOLECALCIFEROL (VIT D3) 1000 UNIT TAB PO SCH (10:47)
[2016-04-09] MEDS: SODIUM CHLORIDE 0.9% FLUSH 5 ML FLUSH FLUSH SCH ×2 (10:47→21:00)
[2016-04-09] MEDS: PRAVASTATIN SOD 20 MG TAB PO SCH (10:47)
[2016-04-09] MEDS: amLODIPine BESYLATE 5 MG TAB PO SCH (10:47)
[2016-04-09] MEDS: ASPIRIN 325 MG TAB PO SCH (10:47)
--- NOTE | 2016-04-09 13:40 | HHI.PR ---
Subjective Remarks Follow-up for acute stroke. Ms. Davidson is currently doing well. Denies any acute concerns. No chest pain, shortness of breath, fever or chills. Her left- sided weakness is improving. Waiting for [facility] to process insurance paperwork. Objective Vitals Vital Signs Date Time Temp Pulse Resp B/P Pulse Ox O2 Delivery O2 Flow Rate FiO2 04/09/16 12:33 96.3 74 18 166/72 95 04/09/16 11:13 78 04/09/16 10:36 93 21 04/09/16 08:35 96.0 76 16 169/71 95 04/09/16 04:00 97.2 90 20 140/85 95 04/09/16 00:45 84 04/09/16 00:00 98.3 82 18 155/74 97 04/08/16 20:00 98.0 72 18 178/74 97 04/08/16 16:00 97.8 85 22 148/68 96 I/O 04/08/16 04/08/16 04/08/16 04/09/16 04/09/16 04/09/16 07:00 15:00 23:00 07:00 15:00 23:00 Intake Total 480 ml Output Total 1 ml Balance 480 ml -1 ml Intake Oral 480 ml Output Stool Total 1 ml # Voids 5 2 3 # Bowel Movements 1 Result Diagram: 04/08/16 0531 04/08/16 0531 Imaging Last Impressions Head CT 04/07/16 1301 Signed Impressions: Service Date/Time: Thursday, April 07, 2016 13:24 - CONCLUSION: 1. No acute infarct, acute hemorrhage, mass effect or extraaxial fluid collections. 2. Stable scattered old lacunar infarcts within the bilateral basal ganglia and periventricular/subcortical white matter small vessel ischemic changes bilaterally. 3. Stable cerebral atrophy. Rafa Lee MD Chest X-Ray 04/07/16 1301 Signed Impressions: Service Date/Time: Thursday, April 07, 2016 14:20 - CONCLUSION: Abnormal chest as described above. A good PA and lateral of film would be of benefit. Roscoe Vazquez MD FACR Neck Magnetic Resonance Angiography 04/07/16 0000 Signed Impressions: Service Date/Time: Thursday, April 07, 2016 18:11 - CONCLUSION: 1. Fairly large filling defect and questionable dissection in the brachiocephalic artery. This would be better evaluated with CTA chest. 2. Focal at least moderate stenosis of the proximal left common carotid artery. Mild stenosis at the proximal internal carotid arteries bilaterally and proximal left subclavian artery. Alek Gómez MD Head Magnetic Resonance Angiography 04/07/16 Signed Impressions: Service Date/Time: Thursday, April 07, 2016 18:11 - CONCLUSION: 1. Exam degraded by motion but no significant abnormality identified. Alek Gómez MD Carotid Artery Ultrasound 04/07/16 Signed Impressions: Service Date/Time: Thursday, April 07, 2016 16:17 - CONCLUSION: Findings would suggest high-grade carotid stenosis worse on the left than the right. MR angiogram is suggested.. Roscoe Vazquez MD FACR Brain MRI 04/07/16 Signed Impressions: Service Date/Time: Thursday, April 07, 2016 18:11 - CONCLUSION: 1. Numerous scattered small subcentimeter infarcts in the brain, predominantly over the right hemisphere as above with at least 2 tiny subcentimeter infarcts on the left. No mass effect or shift. No hydrocephalus. Distribution of infarcts most characteristic of an embolic phenomenon. Alek Gómez MD Objective Remarks GENERAL: Alert, oriented 3. NAD. SKIN: Warm and dry. HEAD: Normocephalic. EYES: No scleral icterus. No injection or drainage. NECK: Supple, trachea midline. No JVD or lymphadenopathy. CARDIOVASCULAR: Regular rate and rhythm without murmurs, gallops, or rubs. RESPIRATORY: Breath sounds equal bilaterally. No accessory muscle use. GASTROINTESTINAL: Abdomen soft, non-tender, nondistended. MUSCULOSKELETAL: No cyanosis, or edema. Mild weakness on the left side compared to right side. BACK: Nontender without obvious deformity. No CVA tenderness. Procedures None A/P Problem List: (1) CVA (cerebral vascular accident) ICD Code: I63.9 Status: Acute (2) Hypertension ICD Code: I10 Status: Acute (3) Hypothyroidism ICD Code: E03.9 Status: Acute Assessment and Plan Ms. Davidson is a pleasant 75-year-old female with a history of hypertension, hypothyroidism who presents to the emergency department on 04/07/2016 due to left- sided weakness noticed in the morning around 6 AM. - acute stroke - Neurology evaluated patient. MRI studies shows possible embolic stroke - Continue telemetry to detect possible atrial fibrillation. - Aspirin 325 mg daily. Plavix may be more effective since patient was taking aspirin 81 mg daily. - Will wait for Neurology input with regards to switching to Plavix. - Once insurance paperwork is completed, patient can potentially go to [place] with Holter monitor. - Hypertension - Continue Amlodipine 5mg. Add Lisinopril 20mg Qday. Add Lisinopril 20mg Qday. - Hyperlipidemia - continue pravastatin 20 mg by mouth daily - Hypothyroidism - continue levothyroxine 100 g by mouth daily Full code. Lovenox 40 mg daily. Problem Qualifiers (1) CVA (cerebral vascular accident): Qualified Code: I63.9 - Cerebrovascular accident (CVA), unspecified mechanism Eileen Mittal DO Apr 09, 2016 1:40 pm
[2016-04-09] MEDS: LISINOPRIL 20 MG TAB PO SCH (14:24)
[2016-04-09] MEDS: ENOXAPARIN SODIUM 40 MG/0.4 ML SYRINGE SQ SCH (14:25)
--- NOTE | 2016-04-09 23:45 | EKG ---
Date Performed: 04/07/2016 Time Performed: 13:47:40 PTAGE: 75 years EKG: Sinus rhythm WITH FIRST DEGREE AV BLOCK MARKED LEFT AXIS DEVIATION SEPTAL MYOCARDIAL INFARCTION ABNORMAL ECG PREVIOUS TRACING : 04/03/2000 10.58 Compared to the previous tracing, rate has increased, now l eft axis deviation and first degree AV block DOCTOR: Bakari Odom Interpretating Date/Time 04/09/2016 23:43:53
[2016-04-10] VITALS (7 sets, daily range): BP systolic 114–160; BP diastolic 56–71; PULSE 76–119; RESP 18–20; TEMP 96.3–98.4; O2SAT 92–94
[2016-04-10] MEDS: LEVOTHYROXINE SODIUM 100 MCG TAB PO SCH (05:05)
[2016-04-10] MEDS: SODIUM CHLORIDE 0.9% FLUSH 5 ML FLUSH FLUSH SCH (08:25)
[2016-04-10] MEDS: CHOLECALCIFEROL (VIT D3) 1000 UNIT TAB PO SCH (08:25)
[2016-04-10] MEDS: amLODIPine BESYLATE 5 MG TAB PO SCH (08:25)
[2016-04-10] MEDS: ASPIRIN 325 MG TAB PO SCH (08:25)
[2016-04-10] MEDS: PRAVASTATIN SOD 20 MG TAB PO SCH (08:25)
[2016-04-10] MEDS: LISINOPRIL 20 MG TAB PO SCH (08:25)
[2016-04-10] MEDS: PANTOPRAZOLE SOD 40 MG DELAYED RELEASE TAB PO SCH (08:25)
[2016-04-10] MEDS ORDERED: PLAV75TA29 PO (11:21)
[2016-04-10] MEDS ORDERED: LISI-515 PO (11:21)
--- NOTE | 2016-04-10 11:23 | HHI.DS ---
Discharge Summary Admission Date Apr 07, 2016 at 2:42 pm Discharge Date: Apr 10, 2016 Admitting Diagnosis CVA (1) CVA (cerebral vascular accident) ICD Code: I63.9 Diagnosis: Principal (2) Hypertension ICD Code: I10 (3) Hypothyroidism ICD Code: E03.9 Procedures Echo 04/08/2016 - Left ventricle: The cavity size was normal. Wall thickness was increased in a pattern of mild LVH. There was concentric hypertrophy. Systolic function was normal. The estimated ejection fraction was in the range of 60% to 65%. Wall motion was normal; there were no regional wall motion abnormalities. Doppler parameters are consistent with abnormal left ventricular relaxation (grade 1 diastolic dysfunction). - Mitral valve: Moderately calcified annulus. Mild regurgitation. - Left atrium: The atrium was mildly dilated. - Right ventricle: The cavity size was mildly dilated. - Tricuspid valve: Mild regurgitation. - Pulmonary arteries: PA peak pressure: 36mm Hg (S). Brief History - From Admission Ms. Davidson is a 75-year-old female with a history of hypertension, COPD, hypothyroidism who presents to the emergency department on 04/07/2016 due to left- sided weakness. History mostly obtained from patient's and daughter at bedside. Patient fell at night on 04/06/2016 and it was difficult for her to pick her up from the floor. Patient's daughter came and helped her mother to get back to the bed. In the morning around 6 AM patient's family members noticed coordination difficulty with left arm as well as left leg. She also had left leg weakness as well. No chest pain, shortness of breath, fever or chills. No changes in bowel or bladder habits. CBC/BMP: 04/08/16 0531 04/08/16 0531 Significant Findings Laboratory Tests Test 04/07/16 04/07/16 04/08/16 13:20 14:26 05:31 Neutrophils (%) (Auto) 80.5 % (16.0-70.0) Estimat Glomerular Filtration 59 ML/MIN (>89) 75 ML/MIN (>89) Rate Random Glucose 126 MG/DL (74-106) Aspartate Amino Transf 13 U/L (15-37) (AST/SGOT) Troponin I LESS THAN 0.02 NG/ML (0.02-0.05) Urine Mucus FEW /lpf (OCC) Monocytes (%) (Auto) 12.4 % (0.0-8.0) HDL Cholesterol 71.7 MG/DL (40.0-60.0) Imaging Last Impressions Head CT 04/07/161 Signed Impressions: Service Date/Time: Thursday, April 07, 2016 13:24 - CONCLUSION: 1. No acute infarct, acute hemorrhage, mass effect or extraaxial fluid collections. 2. Stable scattered old lacunar infarcts within the bilateral basal ganglia and periventricular/subcortical white matter small vessel ischemic changes bilaterally. 3. Stable cerebral atrophy. Rafa Lee MD Chest X-Ray 04/07/161300 Signed Impressions: Service Date/Time: Thursday, April 07, 2016 14:20 - CONCLUSION: Abnormal chest as described above. A good PA and lateral of film would be of benefit. Roscoe Vazquez MD FACR Neck Magnetic Resonance Angiography 04/07/16 Signed Impressions: Service Date/Time: Thursday, April 07, 2016 18:11 - CONCLUSION: 1. Fairly large filling defect and questionable dissection in the brachiocephalic artery. This would be better evaluated with CTA chest. 2. Focal at least moderate stenosis of the proximal left common carotid artery. Mild stenosis at the proximal internal carotid arteries bilaterally and proximal left subclavian artery. Alek Gómez MD Head Magnetic Resonance Angiography 04/07/16 Signed Impressions: Service Date/Time: Thursday, April 07, 2016 18:11 - CONCLUSION: 1. Exam degraded by motion but no significant abnormality identified. Alek Gómez MD Carotid Artery Ultrasound 04/07/16 Signed Impressions: Service Date/Time: Thursday, April 07, 2016 16:17 - CONCLUSION: Findings would suggest high-grade carotid stenosis worse on the left than the right. MR angiogram is suggested.. Roscoe Vazquez MD FACR Brain MRI 04/07/16 Signed Impressions: Service Date/Time: Thursday, April 07, 2016 18:11 - CONCLUSION: 1. Numerous scattered small subcentimeter infarcts in the brain, predominantly over the right hemisphere as above with at least 2 tiny subcentimeter infarcts on the left. No mass effect or shift. No hydrocephalus. Distribution of infarcts most characteristic of an embolic phenomenon. Alek Gómez MD PE at Discharge GENERAL: Alert, oriented 3. NAD. SKIN: Warm and dry. HEAD: Normocephalic. EYES: No scleral icterus. No injection or drainage. NECK: Supple, trachea midline. No JVD or lymphadenopathy. CARDIOVASCULAR: Regular rate and rhythm without murmurs, gallops, or rubs. RESPIRATORY: Breath sounds equal bilaterally. No accessory muscle use. GASTROINTESTINAL: Abdomen soft, non-tender, nondistended. MUSCULOSKELETAL: No cyanosis, or edema. Mild weakness on the left side compared to right side. BACK: Nontender without obvious deformity. No CVA tenderness. Pt update on day of discharge Ms. Davidson is doing well. No acute concerns. Denies any chest pain, SOB, fever , chills. Ambulating with assistance. Hospital Course Ms. Davidson is a pleasant 75-year-old female with a history of hypertension, hypothyroidism who presents to the emergency department on 04/07/2016 due to left- sided weakness noticed in the morning around 6 AM. - acute stroke - Neurology evaluated patient. MRI studies shows possible embolic stroke - Continue telemetry to detect possible atrial fibrillation. - Aspirin 325 mg daily. Plavix may be more effective since patient was taking aspirin 81 mg daily. - Discussed with neurology who agreed with transitioning from Aspirin to Plavix 75mg Qday. - Insurance did not approve [facility] rehab. Patient subsequently went to SNF. - Hypertension - Continue Amlodipine 5mg. Add Lisinopril 20mg Qday. Add Lisinopril 20mg Qday. - Hyperlipidemia - continue pravastatin 20 mg by mouth daily - Hypothyroidism - continue levothyroxine 100 g by mouth daily Pt Condition on Discharge: Good Discharge Disposition: Discharge to SNF Discharge Time: > 30 minutes Discharge Instructions DIET: Follow Instructions for: As Tolerated, No Restrictions Activities you can perform: Regular-No Restrictions Follow up Referrals: PCP Follow-up - 2 Weeks New Medications: Clopidogrel (Plavix) 75 Mg Tab 75 MG PO DAILY Blood Clot Prevention #30 Ref 0 TAB Lisinopril (Lisinopril) 20 Mg Tab 20 MG PO DAILY Blood Pressure Management Days 30 TAB Continued Medications: Amlodipine (Amlodipine) 5 Mg Tab 5 MG PO DAILY Blood Pressure Management #30 Ref 0 TAB Cholecalciferol (Vitamin D-3) 1,000 Unit Tab 1000 UNITS PO DAILY #30 Ref 0 TAB Levothyroxine (Levothyroxine) 100 Mcg Tab 100 MCG PO DAILY Thyroid #30 Ref 0 TAB Lovastatin (Lovastatin) 20 Mg Tab 20 MG PO HS Cholesterol Management #30 Ref 0 TAB Vitamin E (Alph-E) 400 Unit Cap 400 UNITS PO DAILY Discontinued Medications: Aspirin (Aspirin Children's) 81 Mg Chew 81 MG CHEW HS Ref 0 TAB Krill Oil (Krill Oil 500 mg) 1 Cap Cap 500 MG PO DAILY Eileen Mittal DO Apr 10, 2016 11:23
[2016-04-10] MEDS: ENOXAPARIN SODIUM 40 MG/0.4 ML SYRINGE SQ SCH (15:00)
[2016-04-11] MEDS ORDERED: CLOPIDOGREL 75 MG TAB PO SCH (09:00)
== END 2016-04-10 20:22 | DRG 65 ==
LOC: NEPE 12:51 → NEDA 14:42 → N05A 19:39
PROVIDERS: ADMIT Hospitalist; ATTEND Hospitalist
DX: I63.40 Cerebral infarction due to embolism of unspecified cerebral artery (principal); G81.94 Hemiplegia, unspecified affecting left nondominant side; J44.9 Chronic obstructive pulmonary disease, unspecified; I44.0 Atrioventricular block, first degree; I10 Essential (primary) hypertension; E78.00 Pure hypercholesterolemia, unspecified; Z79.82 Long term (current) use of aspirin; E03.9 Hypothyroidism, unspecified; Z82.49 Family history of ischemic heart disease and other diseases of the circulatory system; E78.5 Hyperlipidemia, unspecified; I25.10 Atherosclerotic heart disease of native coronary artery without angina pectoris; M81.0 Age-related osteoporosis without current pathological fracture; N32.81 Overactive bladder; I08.1 Rheumatic disorders of both mitral and tricuspid valves
CPT/HCPCS: 70450; 70544; 70548; 70551; 71010; 71275; 80048; 80053; 80061; 81001; 82550; 82948; 83036; 84484; 85025; 85610; 85730; 90732; 93005; 93306; 93880; 96361; 96374; A9579; J0360; J1650; J1815; J7040; Q9967